=== PATIENT | female | born 1990 | race Caucasian/White ===

== ENCOUNTER 2018-07-03 19:30 | Emergency (ER) | payer MEDICAID ==
[2018-07-03] MEDS: IBUPROFEN 600 MG TAB PO (20:11)
== END 2018-07-03 20:13 | disposition home or self-care (01) ==
LOC: FTE 20:13
DX: T15.02XA Foreign body in cornea, left eye, initial encounter (principal); X58.XXXA Exposure to other specified factors, initial encounter; Y92.89 Other specified places as the place of occurrence of the external cause
CPT/HCPCS: 65220; 99283-25